=== PATIENT | female | born 1965 | race Caucasian/White ===

== ENCOUNTER 2018-05-11 08:00 | Inpatient (IN) | payer OTHER ==
[2018-05-10 11:30] LABS: Absolute Lymphocytes (CBC) 1.7 K/uL (0.7-4.9); Absolute Monocytes 0.6 K/uL (0.1-1.3); Basophils % 0.9 % (0-1.3); Eosinophils % 2.7 % (0-4.4); Hematocrit 37.3 % (36.0-45.0); Lymphocytes % 22.4 % (15.3-44.8); MCH 30.4 pg (27.0-35.0); MCV 90.6 fL (80-100); MPV 8.8 fL (7.6-11.3); Monocytes % 8.3 % (3.3-12.3); RBC Red Blood Cell Count 4.11 M/uL (3.86-4.86)
--- NOTE | 2018-05-10 11:50 | RAD REPORT ---
EXAM DESCRIPTION: Clement Armstrong (2 Views)05/10/2018 11:29 am CLINICAL HISTORY: Breast cancer/preoperative exam COMPARISON: None FINDINGS: The lungs are hyperaerated. Postsurgical changes of a left mastectomy are seen. The lungs appear clear of acute infiltrate. The heart is normal size IMPRESSION: Hyperaerated lungs may indicate COPD. No acute abnormality is displayed
[2018-05-11] MEDS ORDERED: SCOPOLAMINE HYDROBROMIDE PATCH TD ONE (08:23)
[2018-05-11] MEDS ORDERED: Ringers Lactate 1,000 ML IV ONE ×6 (08:25→18:07)
[2018-05-11] MEDS ORDERED: CEFAZOLIN/SWI 1gm 1 GM/10 ML SYR ONE (08:25)
[2018-05-11] MEDS ORDERED: MIDAZOLAM HCL 2 MG/2 ML INJ ONE ×2 (08:58→17:26)
[2018-05-11] MEDS ORDERED: DEXAMETHASONE 10 MG/ML VIAL ONE (08:58)
[2018-05-11] MEDS ORDERED: PROPOFOL 200 MG/20 ML VIAL IV ONE (08:58)
[2018-05-11] MEDS ORDERED: LANO/MINERAL OIL/PETRO 3.5 GM ONE (08:58)
[2018-05-11] MEDS ORDERED: LIDOCAINE 1% MPF 5 ML VIAL ONE (08:59)
[2018-05-11] MEDS ORDERED: NS 0.9% VIAL 10 ML ONE (08:59)
[2018-05-11] MEDS ORDERED: VECURONIUM 10 MG/VIAL IV ONE (09:01)
[2018-05-11] MEDS ORDERED: FENTANYL CITR 250 MCG/5 ML ONE ×2 (09:01→12:12)
[2018-05-11] MEDS ORDERED: ONDANSETRON 4 MG/2 ML VIAL ONE (09:13)
[2018-05-11] MEDS ORDERED: NS 0.9% VIAL 20 ML ONE ×2 (09:30→15:30)
[2018-05-11] MEDS ORDERED: BACITRACIN 50000 UNIT VIAL ONE (09:31)
[2018-05-11] MEDS ORDERED: GENTAMICIN SULF 80 MG/2ML INJ ONE (09:31)
[2018-05-11] MEDS ORDERED: CEFAZOLIN SODIUM 1 GM/VIAL ONE ×2 (09:31→23:33)
[2018-05-11] MEDS ORDERED: ROCURONIUM 50 MG/5 ML VIAL IV ONE ×2 (11:29→14:46)
[2018-05-11] MEDS ORDERED: ALBUTEROL INHALER 60 PUFF/8 GM IH ONE (11:29)
[2018-05-11] MEDS: Mastisol Adhesive Liq ONE ×2 (12:41→18:19)
[2018-05-11] MEDS ORDERED: MORPHINE 10 MG/ML VIAL ONE (14:41)
[2018-05-11] MEDS ORDERED: Phenylephrine HCl 10 MG/ML 1 ML VIAL ONE ×2 (15:27→18:17)
[2018-05-11] MEDS ORDERED: FENTANYL CITR 100 MCG/2 ML ONE (17:52)
[2018-05-11] MEDS ORDERED: HETASTARCH/NACL (HESPAN) 1,000 ML IV ONE (18:05)
[2018-05-11] MEDS ORDERED: Mastisol Adhesive Liq ONE (18:24)
[2018-05-11] MEDS ORDERED: MEPERIDINE HCL 25 MG/0.5 ML ONE ×2 (18:59→20:11)
--- NOTE | 2018-05-11 19:01 | RAD REPORT ---
EXAM DESCRIPTION: RAD - Chest Single View - 05/11/2018 6:49 pm CLINICAL HISTORY: Incorrect surgical needle count. COMPARISON: None. FINDINGS: Portable technique limits examination quality. The lungs are grossly clear. The heart is normal in size. ET tube is above the ksenia.Drains are note d along the chest wall bilaterally. No radiopaque foreign body is seen.
--- NOTE | 2018-05-11 19:01 | RAD REPORT ---
EXAM DESCRIPTION: RAD - Abdomen Single View - 05/11/2018 6:49 pm CLINICAL HISTORY: Incorrect surgical needle count. COMPARISON: None. FINDINGS: The bowel gas pattern is non-obstructive. No evidence of free air or pneumatosis. Two larg e drains noted projecting abdomen. Anna are noted inferiorly. No radiopaque foreign body visualized. IMPRESSION: No radiopaque foreign body visualized
[2018-05-11] MEDS ORDERED: D5LR 1,000 ML IV ONE (20:24)
[2018-05-11] MEDS: D5LR 1,000 ML IV SCH (22:00)
[2018-05-11] MEDS: MEPERIDINE HCL 50 MG/ML AMP IM PRN (23:11)
[2018-05-11] MEDS ORDERED: NA CHLORIDE 0.9% 50 ML ONE (23:43)
[2018-05-11] MEDS: CEFAZOLIN/NS 1gm 1 GM/50 ML BAG IVPB SCH (23:57)
[2018-05-12] MEDS: MEPERIDINE HCL 50 MG/ML AMP IM PRN ×2 (04:03→09:54)
[2018-05-12] MEDS ORDERED: NA CHLORIDE 0.9% 50 ML ONE (04:40)
--- NOTE | 2018-05-12 05:27 | HP ---
Date of Admission: 05/11/2018 The patient is a 52-year-old white female, who is status post lobular carcinoma of the left breast tr eated with mastectomy without radiation and chemotherapy. She underwent skin-sparing mastectomy of e xcess skin. She has ptosis of the right breast enlargement. She is a 35 double DD. No family history of breast cancer. She is status post breast surgery as well as the right radial head replacement arellano rgery, history of asthma and depression. Does smoke. Does drink. No allergies. She is on Arimidex. Physical Examination: General: She is 5 feet 6 inches 135 pounds. Chest Exam: Normal. Breasts: She has enlarged right breast with ptosis and excess wrinkled skin of the left mastectomy s ite. Heart and Lungs: Normal. Abdomen: Some small minimal excess fat skin. Rectal: Deferred. Extremities: Normal, Neurologic: Intact. Assessment: Status post lobular carcinoma of the left breast with skin-sparing mastectomy and right breast enlargement. Plan: We plan for right breast reduction with weight transfer. LIO Voice ID: [id number]
[2018-05-12] MEDS: CEFAZOLIN/NS 1gm 1 GM/50 ML BAG IVPB SCH (05:41)
[2018-05-12] MEDS: D5LR 1,000 ML IV SCH ×2 (08:00→17:35)
--- NOTE | 2018-05-12 08:54 | OP ---
Surgeon: Brian Hernandez MD Gauger Delivery: Shashank. Preoperative Diagnoses: Right breast enlargement and descent, left breast status post mastectomy for lobular carcinoma. Postoperative Diagnoses: Right breast enlargement and descent, left breast status post mastectomy for lobular carcinoma. Procedure Performed: Right breast reduction and left breast reconstructions with pedicle TRAM flaps packed with weight transferred to the pectoralis major muscle, abdominal wall reconstruction with mesh. Anesthesia: General. Procedure In Detail: After satisfactory induction of general anesthesia, the abdomen and breasts were prepped with DuraPrep and dry sterile drapes were applied in the usual manner. The right breast was approached first. A felt- tip marking pen had been used to misha out the incision line. Scalpel was used to excise the skin. A 42 mm template was used to outline the areola. The intervening skin was de-epithelialized with dermabrader or EpiCut. Electrocautery was used to make a transverse incision. Dissection proceeded cephalad and the flap was thinned to 1.3cm thickness and elevated toward the sternum, clavicle, and anterior and axillary line. The breast tissue was encountered and sent for frozen section and was negative for lobular carcinoma. Then, the inferolateral incision was made, excess breast tissue was excised inferolaterally, and then conization was performed after the inferior incision was made. Conization was performed with 2-0 PDS suture. Straps were elevated at 12 o'clock, 1:30, and 3 o'clock positions. The straps were then woven in and out of the pectoralis major muscle, back to the base of the cone and sewn with 20 pds. The 3 o'clock strap was sewn over the sternum at the 3 o'clock position with 2-0 Ethibond. The wound was carefully stapled shut. Our attention was turned to the opposite breast. Incision was used and the contracted skin was removed, and the patient had an pulmonologist/intensivist placed and filled to 600 cc . This was done after the flap was elevated and found in an avascular plane from a previous dissection done with a scalpel and electrocautery. Our attention was then turned to the abdomen. The patient had been marked out in the holding area and. Incisions were made about 2 cm above the umbilicus and about 6 cm above the pubic bone and the ellipse was incised full thickness with a scalpel and then electrocautery was used. The flap was elevated on the right side after a vertical midline incision had been made around the umbilicus. The patient then had the right flap elevated. The lateral perforators were preserved. Scalpel was used to incise the fascia over the rectus sheath. The inferior epigastric was clamped with a hemostat and tied with 3-0 Vicryl. Minor branch was clipped . The flap was split and the incision was made around the umbilicus down to the fascia level and the muscle was from the anterior sheaths and posterior sheath. Attention was then turned to the de-epithelialized flap. It was elevated from distal to proximal. The inferior epigastrics were tied with n 3 0 Vicryl as well . After this was done, the de-epithelialized flap was formed into a cone using 2- 0 PDS sutures and then straps were elevated to form a hemisphere with a 2-0 PDS sutures . The cone was passed the into the recipient site. The straps were then woven in and out the pectoralis major muscle and tied to themselves with 2- 0 PDS. This was done at 12 o'clock, 3 o'clock, and 9 o'clock positions approximately. The right hemitram was passed into the left breast pocket as a only on top of the first flap. This gave adequate volume. The flap was sewn in place with a 3-0 Vicryl sutures on top of the other flap. Then, the wounds were closed. The right breast was closed using 30 vicryl sub q and 30 pds running sub cutaneous.. The VALERIY drain was brought out the axilla and sewn in place with 2-0 silk and was closed with 3-0 Vicryl running on subcu with 3-0 PDS running, subcuticular was tied in the vertical meridian breast and then a 42 template was used to outline the site for the new areola, it was cored out. The areola was delivered, sewn with 4-0 PDS interrupted, followed by 4-0 PDS running for subcuticular. The left breast was then closed using 30 vicryl and 30 pds sub q. Extra irregular skin from the previous mastectomy was resected . The skin was closed with 3-0 Vicryl, subcu 3-0 PDS running, and subcuticular was tied in the vertical meridian breast. Attention was turned to the abdomen. The rectus sheath was approximated with interrupted [id number]-[id number] 0 Prolene. After this was done, the umbilicus was removed and then onlay mesh of was sewn in place with #1 proline from anterior iliac spine to pubic to the opposite anterior iliac spine and from the supraumbilical position, transverse, and out both sides and tied over anterior iliac spine bilaterally. The wound was then closed after VALERIY drains were brought out and sewn with 2-0 silk The wound was closed with 3-0 Vicryl quilting sutures ,and then the skin was closed with 3 0 vicryl sub q and3-0 PDS running subcuticular tied in the vertical meridian of the abdomen. Dressed with tincture of benzoin, Steri-Strips, 5x5s, fluffs, and Lavon wrap over the breast and 4x4s and tape over the abdomen. Estimated blood loss was about 300 cc. The patient tolerated the procedure well and returned to Recovery. The amount of tissue was removed from the right breast 175 grams. NENA/SARBJIT Voice ID: [id number] Report ID: [id number] DARON
[2018-05-12] MEDS: CEFAZOLIN/SWI 1gm 1 GM/10 ML SYR IV SCH ×2 (12:42→18:33)
[2018-05-12] MEDS ORDERED: CYCLOBENZAPRINE 10 MG TAB PO PRN (13:11)
[2018-05-12] MEDS ORDERED: ACETAMINOPHEN 325 MG TABLET PO PRN (13:12)
[2018-05-12] MEDS: HYDROCODONE/APAP 5/325 MG TAB PO PRN ×2 (14:47→20:29)
[2018-05-13] MEDS: CEFAZOLIN/SWI 1gm 1 GM/10 ML SYR IV SCH ×3 (00:03→12:06)
[2018-05-13] MEDS: D5LR 1,000 ML IV SCH (03:12)
--- NOTE | 2018-05-13 08:44 | PN ---
The patient's dressing was removed today. The abdominal wound is healing well. The VALERIY drain has put out more than 30 cc per day. The right breast was appropriately positioned. Nipple sensation intact. The left breast external skin was discolored over the lateral and inferior aspect. Had good cap refill . Plan: Plan will be to keep her another day, switch her oral agents and plan on discharge tomorrow. NENA/SARBJIT Voice ID: [id number] Report ID: [id number] MTDD
[2018-05-13] MEDS: HYDROCODONE/APAP 5/325 MG TAB PO PRN ×3 (09:00→20:21)
[2018-05-13 10:26] LABS: Absolute Lymphocytes (CBC) 0.9 K/uL (0.7-4.9); Absolute Monocytes 0.6 K/uL (0.1-1.3); Absolute Neutrophil 7.2 K/uL (1.8-8.0); Basophils % 0.4 % (0-1.3); Hematocrit 21.3 % (36.0-45.0); Lymphocytes % 10.4 % (15.3-44.8); MCH 30.7 pg (27.0-35.0); MCV 89.7 fL (80-100); MPV 8.9 fL (7.6-11.3); Monocytes % 6.8 % (3.3-12.3); RBC Red Blood Cell Count 2.37 M/uL (3.86-4.86)
[2018-05-13] MEDS ORDERED: NA CHLORIDE 0.9% 1,000 ML IV ONE (12:14)
[2018-05-13] MEDS ORDERED: ALBUTEROL 2.5 MG/3 ML NEB SOL NEB PRN (12:40)
[2018-05-13 13:34] LABS: Ferritin 84.2 ng/ml (11.0-306.8); Transferrin 112 mg/dL (192-382)
[2018-05-13 13:40] LABS: Iron < 7.0 ug/dL (28-170)
[2018-05-13] MEDS ORDERED: ALBUTEROL 2.5 MG/3 ML NEB SOL NEB SCH (14:00)
--- NOTE | 2018-05-13 14:26 | PN ---
Afebrile, heart rate as high as 121 with pain. She is having mild pain. No bowel movement yet. Eating very little. VALERIY drainage from the right lower abdomen elevated . The rest are within normal and expected at this time. Right breast is healing well. Left breast has reconstruction and has some discoloration over the central portion of the cephalad flap. We will plan on getting CBC today, discontinue the IV Hep-Lock probably discharge tomorrow. NENA/SARBJIT Voice ID: [id number] Report ID: [id number] MTDD
[2018-05-13] MEDS ORDERED: FLUTICASONE (FLONASE) 50MCG NASAL SPRAY NAS SCH (15:00)
[2018-05-13] MEDS: NA CHLORIDE 0.9% 1,000 ML IV SCH (15:07)
[2018-05-13 17:14] LABS: Hematocrit 20.1 % (36.0-45.0)
[2018-05-13] MEDS ORDERED: NA CHLORIDE 0.9% 250 ML ONE (17:54)
--- NOTE | 2018-05-13 18:49 | RAD REPORT ---
EXAM DESCRIPTION: CT - Abdomen Pelvis Wo Contrast - 05/13/2018 6:28 pm CLINICAL HISTORY: Abdominal pain. Breast cancer. Surgery a couple days ago. . COMPARISON: None TECHNIQUE: Computed axial tomography of the abdomen and pelvis was obtained. IV and oral contrast we re not requested. All CT scans are performed using dose optimization technique as appropriate and may include automated exposure control or mA/KV adjustment according to patient size. FINDINGS: The evaluation of solid organs, vessels and bowel is limited secondary to the lack of con trast administration. Postsurgical changes of left breast reconstruction are noted. Air bubbles are present within the marilin st tissue and subcutaneous tissues. This extends into the subcutaneous tissues of abdomenand pelvis. This likely is a normal finding if the patient has had surgery couple days ago. Diffuse edema is pres ent within the subcutaneous tissues. Minimal pleural effusions are present. Drainage tubes are present The liver, spleen, pancreas, adrenals and kidneys appear grossly normal. The bowel caliber and wall thickness is normal without evidence diverticulitis. No significant free f luid is noted. IMPRESSION: Postsurgical changes as described above. An intra-abdominal abscess is not noted. No acu te intraabdominal abnormality is displayed
[2018-05-14] MEDS ORDERED: FUROSEMIDE 20 MG/ 2ML VIAL IV SCH (00:22)
--- NOTE | 2018-05-14 00:32 | HP ---
Date of Admission: 05/13/2018 Reason For Consultation: Anemia. History Of Present Illness: The patient is a 52-year-old female with past medical history of intermi ttent asthma and breast cancer, left; status post left breast mastectomy and sentinel node biopsy who was admitted to the hospital for left breast reconstruction with flaps and right breast reduction. The patient also had abdominal wall reconstruction with mesh. The patient did well postoperatively. However, her hemoglobin level did drop from 12.5-7.3, since the surgery. The patient does appear pa le, is tachycardic. I was consulted to see the patient for the anemia. When the patient was seen on the floor, she was awake, alert, oriented x3, in some mild distress. Past Medical History: Breast cancer status post mastectomy, currently on anastrozole, intermittent a sthma. Past Surgical History: Left breast mastectomy, left breast reconstruction, right breast reduction, a bdominal wall reconstruction, right radial bone repair. Allergies: STATES SENSITIVITIES TO MOST ANTIBIOTICS. Medications: List reviewed. Family History: Positive for father who had heart disease and hypertension. Apparently cancer also runs in the family. Social History: The patient denies any tobacco use, alcohol use, or illicit drug use. . Review of Systems: An 11-point system reviewed, negative except as above.. Physical Examination: Vital Signs: Temperature 98.9, heart rate 121, blood pressure 115/58, respirations 20, O2 92%, 2 L v ia nasal cannula. General: Awake, alert, oriented x3. Some mild distress, pale, ill-appearing female. CV: S1, S2. Sinus tachycardia. Peripheral pulses are present. Respiratory: Clear to auscultation bilaterally. No wheezing. No stridor. No use of accessory musc les. Gastrointestinal: Abdomen is soft. Mild tenderness to palpation. Incision site clean, dry, intact. Extremities: No clubbing, cyanosis, or edema. Skin: Left breast has some discoloration on the upper quadrants and left breast incision site is alfredo an, dry, intact. Therefore drains from the multiple surgery sites. Laboratory Data: WBC 8.7, H and H 7.3/21.3, platelets 165, neutrophils 82%. Assessment And Plan: A 52-year-old female with: 1.Acute blood loss anemia. The patient was recommended to be transfused at least 1 unit PRBCs due t o the significant drop from 12.5-7.3 postoperatively. However, the patient at this time is refusing. She is concerned with the risk factors associated with transfusion, recommended to her that the gita efits outweigh the risks at this time, however, she is not ready for transfusion. We will monitor H and H. At this time the patient is tachycardic, pale, weight in the 120s. We will obtain a cardiac testing. We will obtain an EKG and a bolus with IV fluids and continue with IV fluid hydration since the patient is refusing blood. We will obtain iron panel, vitamin B12, folate, and check LDH to rul e out any sort of hemolysis. However, I doubt that the patient has had significant surgery with marilin st reconstruction, reduction, and abdominal wall reconstruction; however, there is a possibility for a hematoma. However, no masses appear to be apparent. We will continue to monitor closely. 2.History of breast cancer status post mastectomy. We will continue anastrozole. I did speak with Dr. Jung, the patient's oncologist. 3.History of intermittent asthma. We will start on albuterol nebulizers p.r.n. 4.Gastrointestinal and deep venous thrombosis prophylaxis with PPI and SCDs. No chemical anticoagulation due to blood loss anemia. We will follow along with you. MADDIE Voice ID: [id number]
[2018-05-14] MEDS ORDERED: NA CHLORIDE 0.9% 250 ML ONE (00:43)
[2018-05-14] MEDS: NA CHLORIDE 0.9% 1,000 ML IV SCH ×2 (01:00→11:00)
--- NOTE | 2018-05-14 06:21 | EKG ---
Test Date: 2018-05-13 Test Time: 12:23:45 Senior Publications Specialist: SKYE MEASUREMENT RESULTS: Intervals: Rate: 116 TX: 128 QRSD: 74 QT: 288 QTc: 400 [place]: P: 58 TX: 128 QRS: 66 T: -57 INTERPRETIVE STATEMENTS: Sinus tachycardia Low voltage QRS Nonspecific T wave abnormality Abnormal ECG Compared to ECG 01/27/2018 15:14:54 Low QRS voltage now present T-wave abnormality now present Sinus rhythm no longer present Electronically Signed On 05-14-18 06:20:36 CDT by Bora Eubanks
[2018-05-14 07:42] LABS: Hematocrit 27.9 % (36.0-45.0)
[2018-05-14 08:39] LABS: Folic Acid, (Folate) 9.7 ng/ml (>5.21)
[2018-05-14] MEDS ORDERED: ANASTROZOLE 1 MG TAB PO SCH (09:00)
--- NOTE | 2018-05-15 07:00 | DS ---
History Of Present Illness: The patient is a 52-year-old white female, admitted for breast reconstru ction. She is status post a left modified radical mastectomy with skin sparing for lobular carcinoma . She presents now for reconstruction. She is a 35 DD. Family History: No family history of breast cancer. Past Medical History: She has a history of depression, asthma. She is also status post of right fore arm radial head replacement. Social History: Does not smoke. Does not drink. Allergies: NO ALLERGIES. Medications: On Arimidex. Physical Examination: General: She has ptotic, enlarged large right breast and a transverse scar with absent nipple-areola r complex in the left breast. She was taken to surgery, underwent bilateral TRAM reconstruction with stacked TRAM pedicle and right breast lift and reduction with weight transferred in both of the reconstructed breast and the outer breast. Her course was remarkable for pain, which is not surprising and this relieved with pain management. She developed anemia. Hemoglobin was 7. She was transfused 2 units and now is being discharged home at this time. Nipple sensation intact in the right breast and right breast is anatomically in the r ight position. The abs is healing well and the left breast flaps are pink, shape is good, and sensat ion intact. She will be discharged home on Vicodin 1 tab p.o. q.4 hours p.r.n. pain, Bactrim DS 1 ta b p.o. q.12 hours, and Flexeril 10 mg p.o. q.6 hours p.r.n. To return office in 3 days from now on M on at 9:00 a.m. at the [facility]. Condition On Discharge: Good. NENA/SARBJIT Voice ID: [id number] Report ID: [id number]
== END 2018-05-14 12:49 | disposition home or self-care (01) | DRG 582 ==
LOC: OR 08:00 → 2ND 21:01 → OR 05-13 17:30
PROVIDERS: ADMIT Specialist; ATTEND Specialist
PROC: 0WUF0JZ Supplement Abdominal Wall with Synthetic Substitute, Open Approach (ICD-10-PCS; 2018-05-11)
PROC: 0HBT0ZZ Excision of Right Breast, Open Approach (ICD-10-PCS; principal; 2018-05-11 09:00)
PROC: 0KXL0Z6 Transfer Left Abdomen Muscle, Transverse Rectus Abdominis Myocutaneous Flap, Open Approach (ICD-10-PCS; 2018-05-11 09:00)
DX: C50.912 Malignant neoplasm of unspecified site of left female breast (principal); D62 Acute posthemorrhagic anemia
CPT/HCPCS: 36415; 71045; 71046; 74018; 74176; 82607; 82728; 82746; 83540; 83615; 84466; 84703; 85014; 85018; 85025; 86850; 86900; 86901; 88305; 88331; 88332; 93005; J0690; J1100; J1580; J1940; J2175; J2250; J2370; J2405; J3010; J7030; P9016

== ENCOUNTER → 2018-11-05 | Day surgery (SDC) | payer OTHER ==
[~2018-11-05] MED LIST: BACITRACIN 50000 UNIT VIAL ONE; CEFAZOLIN 1GM (PREMIX IV) 1 GM/50 ML BAG ONE; CEFAZOLIN SODIUM 1 GM/VIAL ONE; DEXAMETHASONE 10 MG/ML VIAL ONE; FENTANYL CITR 250 MCG/5 ML ONE; GENTAMICIN SULF 80 MG/2ML INJ ONE; GLYCOPYRROLATE 0.2 MG/ML SYR ONE; KETOROLAC 30 MG/ML INJ ONE; LIDOCAINE 2% MPF 5 ML VIAL ONE; MIDAZOLAM HCL 2 MG/2 ML INJ ONE; Mastisol Adhesive Liq ONE; NS 0.9% VIAL 20 ML ONE; ONDANSETRON 4 MG/2 ML VIAL ONE; ONDANSETRON HCL 40 MG/20 ML VIAL ONE; PROPOFOL 200 MG/20 ML VIAL IV ONE; ROCURONIUM 50 MG/5 ML VIAL IV ONE; Ringers Lactate 1,000 ML IV ONE
[2018-11-05] MEDS: HYDROMORPHONE HCL 1 MG/ML INJ ONE ×6 (11:37→12:20)
--- NOTE | 2018-11-08 09:05 | OP ---
Surgeon: Brian Hernandez MD Customer Care Associate: Shashank. Preoperative Diagnosis: Left carpal tunnel syndrome and status post left breast reconstruction. Postoperative Diagnoses: Left carpal tunnel syndrome and status post left breast reconstruction. Procedure Performed: Left carpal tunnel release, revision of left breast reconstruction and revision of right breast mastopexy. Anesthesia: General. Description Of Procedure: After satisfactory induction of general anesthesia, the left arm was prepped with DuraPrep, dry sterile drapes were applied in the usual manner. The arm was elevated and exsanguinated with Esmarch. Tourniquet was inflated to 250 mmHg. Hand placed on the [place] table. A palmar incision was made with a scalpel. Dissection proceeded down to the transverse carpal ligament. It was divided with scalpel. Antebrachial fascia was opened with tenotomy scissors. The floor was inspected. No masses. The motor branch of median nerve was identified as well as superficial arch. Tourniquet was released. Electrocautery was used for hemostasis. Wound closed with 4-0 Prolene horizontal mattress and vertical mattress and simple sutures. Dressed with Xeroform, 2-inch Sebastian, Kerlix and a splint holding the wrist in 10 degrees of dorsiflexion. Breasts were then prepped with DuraPrep, dry sterile drapes were applied in the usual manner. Right breast was approached first. A curvilinear incision was outlined removing a crescent from the old inframammary incision to reposition the scar exactly into inframammary fold. Skin was incised and then discarded. The patient then had wound closed with 3-0 Vicryl subcutaneous, 3-0 PDS running subcuticular tied from medial to lateral, lateral to medial, tied in the vertical meridian of the breast. The left side was done in an identical manner. When we opened up the wound and elevated the flaps cephalad, the patient had area of firmness at the 12 o'clock position left breast. This area was aspirated with 18-gauge needle and when the flap was elevated, it was inspected. There were no mass that need to be excised. After this was done, the wound was then closed with 3-0 Vicryl subcu, 3-0 PDS running subcuticular tied in the vertical meridian of the breast. Dressings consisted of tincture of benzoin, Steri-Strips, fluffs, Lavon wrap. The patient tolerated the procedure well and returned to Recovery. NENA/SARBJIT Voice ID: [id number] Report ID: [id number] MTDD
== END ==
LOC: OR 07:57
PROVIDERS: ATTEND Specialist
PROC: 01N50ZZ Release Median Nerve, Open Approach (ICD-10-PCS; 2018-11-05)
PROC: 0HQV0ZZ Repair Bilateral Breast, Open Approach (ICD-10-PCS; principal; 2018-11-05 09:00)
PROC: 0HQV0ZZ Repair Bilateral Breast, Open Approach (ICD-10-PCS; 2018-11-05 09:00)
DX: Z42.1 Encounter for breast reconstruction following mastectomy (principal); N64.81 Ptosis of breast; Z85.3 Personal history of malignant neoplasm of breast; G56.02 Carpal tunnel syndrome, left upper limb
CPT/HCPCS: 88305; J0690; J1100; J1170; J1580; J2250; J2405; J2704; J3010

== ENCOUNTER 2019-05-19 08:54 | Day surgery (SDC) | payer OTHER ==
[2019-05-18 10:37] LABS: Absolute Lymphocytes (CBC) 1.4 K/uL (0.7-4.9); Eosinophils % 3.1 % (0-4.4); Hematocrit 35.3 % (36.0-45.0); Lymphocytes % 24.6 % (15.3-44.8); MPV 8.9 fL (7.6-11.3); Monocytes % 8.3 % (3.3-12.3)
[2019-05-19] MEDS ORDERED: Ringers Lactate 1,000 ML IV ONE ×2 (09:18→10:31)
[2019-05-19] MEDS ORDERED: CEFAZOLIN/SWI 1gm 1 GM/10 ML SYR ONE (09:23)
[2019-05-19] MEDS ORDERED: SCOPOLAMINE HYDROBROMIDE PATCH TD ONE ×2 (09:43→09:56)
[2019-05-19] MEDS ORDERED: NS 0.9% VIAL 20 ML ONE (10:30)
[2019-05-19] MEDS ORDERED: GENTAMICIN SULF 80 MG/2ML INJ ONE (10:30)
[2019-05-19] MEDS ORDERED: CEFAZOLIN SODIUM 1 GM/VIAL ONE (10:30)
[2019-05-19] MEDS ORDERED: Mastisol Adhesive Liq ONE (10:31)
[2019-05-19] MEDS ORDERED: BACITRACIN 50000 UNIT VIAL ONE (10:31)
[2019-05-19] MEDS ORDERED: MIDAZOLAM HCL 2 MG/2 ML INJ ONE (12:02)
[2019-05-19] MEDS ORDERED: FENTANYL CITR 100 MCG/2 ML ONE (12:02)
[2019-05-19] MEDS ORDERED: PROPOFOL 200 MG/20 ML VIAL IV ONE (12:02)
[2019-05-19] MEDS ORDERED: LIDOCAINE 2% MPF 5 ML VIAL ONE (12:03)
[2019-05-19] MEDS ORDERED: ONDANSETRON 4 MG/2 ML VIAL ONE (12:04)
[2019-05-19] MEDS ORDERED: ROCURONIUM 50 MG/5 ML VIAL IV ONE (13:13)
[2019-05-19] MEDS ORDERED: DEXAMETHASONE 10 MG/ML VIAL ONE (14:04)
[2019-05-19] MEDS: HYDROMORPHONE HCL 1 MG/ML INJ ONE ×4 (14:14→14:37)
--- NOTE | 2019-05-19 23:35 | OP ---
Surgeon: Brian Hernandez MD [place] Measurer: Shashank. Preoperative Diagnosis: Asymmetry, status post breast reconstruction and lift. Postoperative Diagnosis: Asymmetry, status post breast reconstruction and lift. Procedure Performed: Excision of skin and subcutaneous tissues, 25 cm right, 25 cm left. Anesthesia: General. Procedure In Detail: After satisfactory general anesthesia, the chest was prepped with DuraPrep and dry sterile drapes applied in the usual manner. The right was approached first. A scalpel was used to excise the scarred area of incision and repositioned scar into the fold, after skin was incised an d underlying subcutaneous tissue was incised. Tissue removed. The patient's wound was closed in lay ers; 3-0 Vicryl subcu and 3-0 PDS running subcuticular tied in the vertical meridian breast. Left si de was done in identical manner. Dressing with tincture of benzoin, Steri-Strips, fluffs, Kerlix, Ac e wrap. The patient tolerated the procedure well and returned to recovery. NENA/SARBJIT Voice ID: [id number] Report ID: [id number]
== END 2019-05-19 16:15 | disposition home or self-care (01) ==
LOC: OR 08:54
PROVIDERS: ATTEND Specialist
PROC: 0HBV0ZX Excision of Bilateral Breast, Open Approach, Diagnostic (ICD-10-PCS; principal; 2019-05-19 11:00)
DX: N65.0 Deformity of reconstructed breast (principal); N61.0 Mastitis without abscess
CPT/HCPCS: 36415; 85025; 88305; J0690; J1100; J1170; J1580; J2250; J2405; J2704; J3010

== ENCOUNTER 2020-07-11 08:14 | Day surgery (SDC) | payer OTHER ==
[2020-07-11 08:15] LABS: Absolute Lymphocytes (CBC) 1.2 K/uL (0.7-4.9); Basophils % 1.1 % (0-1.3); Hematocrit 34.9 % (36.0-45.0); Lymphocytes % 28.7 % (15.3-44.8); MPV 8.2 fL (7.6-11.3); RBC Red Blood Cell Count 3.84 M/uL (3.86-4.86)
[2020-07-11 08:25] LABS: Urine Appearance CLEAR; Urine Bilirubin NEGATIVE (NEG); Urine Blood NEGATIVE (NEG); Urine Color YELLOW; Urine Glucose NEGATIVE (NEG); Urine Protein NEGATIVE (NEG); Urine Specific Gravity 1.025 (1.005-1.030); Urine Urobilinogen 0.2 mg/dL (0.2-1.0)
[2020-07-11 08:33] LABS: Urine Microscopic Reflex NO UMIC
--- NOTE | 2020-07-11 08:36 | RAD REPORT ---
EXAM DESCRIPTION: RAD - Chest Pa And Lat (2 Views) - 07/11/2020 8:13 am CLINICAL HISTORY: pre op, patient pending breast reconstruction COMPARISON: Two view chest October 2018 TECHNIQUE: Frontal and lateral views of the chest were obtained. FINDINGS: The lungs are clear of focal infiltrate or mass. Interstitial pattern matches comparison. Increased retrosternal space is present. Patient has a mild pectus avium configuration. Heart size is normal and central vasculature is within normal limits. No pleural effusion or pneumothorax seen. No acute bony finding noted. No aortic abnormality. IMPRESSION: No acute cardiopulmonary process. No significant change from the 2018 comparison.
[2020-07-11] MEDS ORDERED: Ringers Lactate 1,000 ML IV ONE ×2 (09:11→10:46)
[2020-07-11] MEDS ORDERED: CEFAZOLIN/SWI 1gm 1 GM/10 ML SYR ONE (09:11)
[2020-07-11] MEDS ORDERED: SCOPOLAMINE HYDROBROMIDE PATCH TD ONE (09:49)
[2020-07-11] MEDS ORDERED: EPINEPHRINE/PF 1 MG/ML AMP ONE (10:46)
[2020-07-11] MEDS ORDERED: NA CHLORIDE 0.9% 2,000 ML ONE (10:46)
[2020-07-11] MEDS ORDERED: LIDOCAINE 2% MPF 5 ML VIAL ONE (10:48)
[2020-07-11] MEDS ORDERED: propofoL 200 MG/20 ML VIAL IV ONE (10:48)
[2020-07-11] MEDS ORDERED: MIDAZOLAM HCL 2 MG/2 ML INJ ONE (10:48)
[2020-07-11] MEDS ORDERED: dexAMETHasone 10 MG/ML VIAL ONE (10:48)
[2020-07-11] MEDS ORDERED: FENTANYL CITR 250 MCG/5 ML ONE (10:48)
[2020-07-11] MEDS ORDERED: ONDANSETRON 4 MG/2 ML VIAL ONE ×2 (10:49→15:09)
[2020-07-11] MEDS ORDERED: ROCURONIUM 50 MG/5 ML VIAL IV ONE (10:49)
--- NOTE | 2020-07-11 12:36 | EKG ---
Test Date: 2020-07-11 Test Time: 07:50:27 Diamond Wheel Edger: TEETEE MEASUREMENT RESULTS: Intervals: Rate: 83 HI: 128 QRSD: 74 QT: 360 QTc: 423 [place]: P: 20 HI: 128 QRS: 84 T: 55 INTERPRETIVE STATEMENTS: Normal sinus rhythm Normal ECG Compared to ECG 05/13/2018 12:23:45 Sinus tachycardia no longer present T-wave abnormality no longer present Electronically Signed On 07-11-20 12:35:24 CDT by Christopher Rico
[2020-07-11] MEDS ORDERED: EPHEDRINE SULF 50 MG/ML VIAL ONE (13:18)
[2020-07-11] MEDS ORDERED: Mastisol Adhesive Liq ONE (13:21)
[2020-07-11] MEDS ORDERED: KETOROLAC 30 MG/ML INJ ONE (13:49)
[2020-07-11] MEDS: HYDROMORPHONE HCL 1 MG/ML INJ ONE ×4 (14:20→14:43)
[2020-07-11] MEDS: MEPERIDINE HCL 25 MG/ML SYR ONE ×2 (14:33→14:38)
[2020-07-11 14:40] VITALS: O2SAT 100
[2020-07-11] MEDS ORDERED: CODEINE 30MG/APAP 300MG TAB ONE (15:35)
[2020-07-11 15:44] VITALS: BP 112/55; TEMP 98.2
--- NOTE | 2020-07-16 06:20 | OP ---
Surgeon: Brian Hernandez MD Preoperative Diagnosis: Scars and asymmetry, status post left breast reconstruction. Postoperative Diagnosis: Scars and asymmetry, status post left breast reconstruction. Procedure Performed: Scar revision and fat transfer from left thigh to left breast. Anesthesia: General. Description Of Procedure: After satisfactory induction of general anesthesia, chest and legs were pr epped with Betadine scrub, Betadine paint, dry sterile drapes applied in usual manner. 15 blade was used to make an incision over the anterior lateral thigh an infusion cannula 2 mm was used to introduce 200 cc of fluid and then we aspirated 200 cc of fat. We then had the fat gravitate and closed the wound with 4-0 PDS and left breast. The patient had scars on both breasts fro m 1 side and reconstruction on opposite. The incisions were made excising the old scars. Wound closed in layers with 3-0 Vicryl subcu, 3-0 PDS running subcuticular, tied in vertical meridia n of both breasts. Prior to closure of the 3-0 PDS on left breast, fat was introduced. 2.5 mm cannu la tincture of benzoin and Steri-Strips were applied, then fluffs and Lavon wrap. Girdle wa s applied to abdomen and thigh. The patient tolerated the procedure well and returned to Recovery. NENA/SARBJIT Voice ID: [id number] Report ID: [id number]
== END 2020-07-11 16:15 | disposition home or self-care (01) ==
LOC: OR 08:14
PROVIDERS: ATTEND Specialist
PROC: 0H0 Skin and Breast, Alteration (ICD-10-PCS; principal; 2020-07-11 11:00)
DX: N65.1 Disproportion of reconstructed breast (principal); L90.5 Scar conditions and fibrosis of skin; Z01.812 Encounter for preprocedural laboratory examination; Z01.810 Encounter for preprocedural cardiovascular examination; Z01.818 Encounter for other preprocedural examination
CPT/HCPCS: 93005; 85025; 36415; 88302; 81003; 71046; 15771; 15772 ×3; J2704; J0171; J2250; J3010; J1100; J2175; J1170 ×2; J0690; J7120 ×2; J7030; J2405 ×2; 88305